=== PATIENT | female | born 1995 | race Caucasian/White ===

== ENCOUNTER 2016-11-19 17:20 | Emergency (ER) | payer SELFPAY ==
[~2016-11-19] VITALS: Ht 175.3 cm; Wt 100.0 kg
[~2016-11-19 17:20] MED LIST: IBUP800T23 PO; ROBA750T3 PO
[2016-11-19 17:21] VITALS: BP 135/86; PULSE 116; RESP 20; TEMP 98.6; O2SAT 98
== END 2016-11-19 18:36 | disposition left against medical advice (07) ==
LOC: NED 17:20
DX: R10.9 Unspecified abdominal pain (principal); Z53.21 Procedure and treatment not carried out due to patient leaving prior to being seen by health care provider
CPT/HCPCS: 99281

== ENCOUNTER 2017-05-21 15:29 | Emergency (ER) | payer OTHER ==
[~2017-05-21] VITALS: Ht 175.3 cm; Wt 105.0 kg
[~2017-05-21 15:29] MED LIST changes: -IBUP800T23 PO; +METR1TAB76 PO; +ONDA4TAB7 SL; -ROBA750T3 PO
[2017-05-21 16:41] VITALS: BP 116/78; PULSE 128; RESP 20; TEMP 98.3; O2SAT 97
[2017-05-21] MEDS ORDERED: SODIUM CHLOR 0.9% 1000 ML INJ 1,000 ML IV ONE ×2 (18:00→19:45)
[2017-05-21] MEDS ORDERED: METOCLOPRAMIDE HCL 10 MG/2 ML VIAL IV PUSH ONE (18:00)
[2017-05-21 18:07] LABS: AUTOMATED NEUTROPHIL # 14.3 TH/MM3 (1.8-7.7); BASOPHIL % 0.3 % (0.0-2.0); HEMATOCRIT 49.3 % (35.0-46.0); HEMOGLOBIN 17.5 GM/DL (11.6-15.3); LYMPH % 15.2 % (9.0-44.0); LYMPHOCYTE # 2.8 TH/MM3 (1.0-4.8); MEAN CELL VOLUME 78.5 FL (80.0-100.0); MEAN CORPUSCULAR HEMOGLOBIN 27.9 PG (27.0-34.0); MEAN CORPUSCULAR HGB CONC 35.5 % (32.0-36.0); MEAN PLATELET VOLUME 7.2 FL (7.0-11.0); MONO % 7.2 % (0.0-8.0); MONOCYTE # 1.3 TH/MM3 (0-0.9); NEUT % 77.3 % (16.0-70.0); PLATELET COUNT 429 TH/MM3 (150-450); RED BLOOD COUNT 6.29 MIL/MM3 (4.00-5.30); RED CELL DISTRIBUTION WIDTH 16.1 % (11.6-17.2); WHITE BLOOD COUNT 18.5 TH/MM3 (4.0-11.0)
[2017-05-21 18:29] LABS: ALBUMIN 3.7 GM/DL (3.4-5.0); ALKALINE PHOSPHATASE 147 U/L (45-117); ALT (GPT) 51 U/L (10-53); AST (GOT) 53 U/L (15-37); BLOOD UREA NITROGEN 17 MG/DL (7-18); CALCIUM 10.5 MG/DL (8.5-10.1); CHLORIDE 87 MEQ/L (98-107); CREATININE 1.51 MG/DL (0.50-1.00); GLOMERULAR FILTRATION RATE 42 ML/MIN (>89); GLUCOSE,RANDOM 115 MG/DL (74-106); SODIUM (NA) 131 MEQ/L (136-145); TOTAL PROTEIN 9.4 GM/DL (6.4-8.2)
--- NOTE | 2017-05-21 18:59 | PD ---
HPI Chief Complaint: Cold / Flu Symptoms Time Seen by Provider: 17:43 Travel History International Travel<30 days: No Contact w/Intl Traveler<30days: No Traveled to known affect area: No History of Present Illness HPI 22y female 16 weeks presents to the ED complaining of nausea, vomiting for approximately 3 days. States that she has a history of hyperemesis gravidarum with her previous pregnacy and has had to be followed by OB closely. States that she has tried the Diclegis and Zofran without relief of her nausea. States the last administration of Zofran she developed a rash and this was 3 days ago. She has not taken any medication since then. Patient denies chest pain, shortness of breath. Denies vaginal discharge. She was advised to come to the ED to r/u influenza prior to going to OB here for monitoring. PFSH Past Medical History Medical History: Denies Significant Hx Diminished Hearing: No Immunizations Current: Yes Tetanus Vaccination: Unknown Influenza Vaccination: No ?: LMP: 16 weeks : 2 Para: 1 Miscarriage: 0 : 0 Past Surgical History Surgical History: No Previous Surgery Social History Alcohol Use: No Tobacco Use: No Substance Use: No Allergies-Medications (Allergen,Severity, Reaction): Coded Allergies: ondansetron (Verified Allergy, Mild, rash, 05/21/17) No Known Allergies (Unverified Allergy, Unknown, 05/21/17) Reported Meds & Prescriptions Reported Meds & Active Scripts Active Promethazine Supp (Promethazine HCl) 25 Mg Supp 25 Mg RECTAL Q6H PRN 5 Days Ondansetron Odt 4 Mg Tab 4 Mg SL Q12HR PRN Review of Systems Except as stated in HPI: all other systems reviewed are Neg Physical Exam Narrative GENERAL: Well-developed well-nourished in mild distress, in right decubitus position SKIN: Focused skin assessment warm/dry. Left anterior upper chest wall with small 3 mm papules (family says this is the reaction of zofran) HEAD: Atraumatic. Normocephalic. EYES: Pupils equal and round. No scleral icterus. No injection or drainage. ENT: No nasal bleeding or discharge. Mucous membranes pink and moist. No pharyngeal injection, no tonsillary hypertrophy NECK: Trachea midline. No JVD. CARDIOVASCULAR: Regular rate and rhythm. No murmur appreciated. RESPIRATORY: No accessory muscle use. Clear to auscultation. Breath sounds equal bilaterally. GASTROINTESTINAL: Abdomen soft, mildly tender MUSCULOSKELETAL: No obvious deformities. No clubbing. No cyanosis. No edema. No CVA tenderness NEUROLOGICAL: Awake and alert. No obvious cranial nerve deficits. Motor grossly within normal limits. Normal speech. PSYCHIATRIC: Appropriate mood and affect; insight and judgment normal. Data Data Last Documented VS Vital Signs Date Time Temp Pulse Resp B/P (MAP) Pulse Ox O2 Delivery O2 Flow Rate FiO2 05/21/17 20:32 05/21/17 17:23 Room Air 05/21/17 16:41 98.3 128 20 97 Orders Orders Complete Blood Count With Diff (05/21/17 17:03) Comprehensive Metabolic Panel (05/21/17 17:03) Influenzae A/B Antigen (05/21/17 17:03) Metoclopramide Inj (Reglan Inj) (05/21/17 18:00) Sodium Chlor 0.9% 1000 Ml Inj (Ns 1000 M (05/21/17 18:00) Potassium Chloride (Kcl) (05/21/17 19:00) Sodium Chlor 0.9% 1000 Ml Inj (Ns 1000 M (05/21/17 19:45) Promethazine Inj (Phenergan Inj) (05/21/17 19:45) Ed Discharge Order (05/21/17 19:50) Labs Laboratory Tests Test 05/21/17 17:25 White Blood Count 18.5 TH/MM3 Red Blood Count 6.29 MIL/MM3 Hemoglobin 17.5 GM/DL Hematocrit 49.3 % Mean Corpuscular Volume 78.5 FL Mean Corpuscular Hemoglobin 27.9 PG Mean Corpuscular Hemoglobin Concent 35.5 % Red Cell Distribution Width 16.1 % Platelet Count 429 TH/MM3 Mean Platelet Volume 7.2 FL Neutrophils (%) (Auto) 77.3 % Lymphocytes (%) (Auto) 15.2 % Monocytes (%) (Auto) 7.2 % Eosinophils (%) (Auto) 0.0 % Basophils (%) (Auto) 0.3 % Neutrophils # (Auto) 14.3 TH/MM3 Lymphocytes # (Auto) 2.8 TH/MM3 Monocytes # (Auto) 1.3 TH/MM3 Eosinophils # (Auto) 0.0 TH/MM3 Basophils # (Auto) 0.0 TH/MM3 CBC Comment AUTO DIFF Differential Comment AUTO DIFF CONFIRMED Blood Urea Nitrogen 17 MG/DL Creatinine 1.51 MG/DL Random Glucose 115 MG/DL Total Protein 9.4 GM/DL Albumin 3.7 GM/DL Calcium Level 10.5 MG/DL Alkaline Phosphatase 147 U/L Aspartate Amino Transf (AST/SGOT) 53 U/L Alanine Aminotransferase (ALT/SGPT) 51 U/L Total Bilirubin 1.0 MG/DL Sodium Level 131 MEQ/L Potassium Level 2.8 MEQ/L Chloride Level 87 MEQ/L Carbon Dioxide Level 32.0 MEQ/L Anion Gap 12 MEQ/L Estimat Glomerular Filtration Rate 42 ML/MIN MDM Medical Decision Making Medical Screen Exam Complete: Yes Emergency Medical Condition: Yes Differential Diagnosis Influenza, viral syndrome, hyperemesis gravidarum Narrative Course 22y female presents to the ED complaining of nausea, vomiting for approximately 16 weeks. States that she has a history of hyperemesis gravidarum and has had to be followed by OB closely. States that she has tried the Diclegis and Zofran without relief of her nausea. States the last administration of Zofran she developed a rash and this was 3 days ago. She has not taken any medication since then. Patient denies chest pain, shortness of breath. Denies vaginal discharge. She was advised to come to the ED to r/u influenza prior to going to OB here for monitoring. Vital signs stable. Influenza negative. Labs appear stable. Patient received 2 L IV fluid in the emergency department today. Reglan administered however, unable to control her nausea. Promethazine 25 mg administered IM. This did help her nausea. She will be discharged with [place] Phenergan. Advised to stay ahead of the nausea symptoms and encourage hydration. Continue zofran. 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 She is instructed to follow-up in the OB, L&D area. Diagnosis Primary Impression: Hyperemesis Referrals: Manager Communication Primary Care Physician Additional Instructions: Take small sips of water to encourage adequate fluid intake. Use the promethazine suppositories as prescribed to prevent nausea. Follow-up with your motor vehicle operator road supervisor as soon as possible. Go to the L&D, OB department for observation Scripts Promethazine Supp (Promethazine Supp) 25 Mg Supp 25 MG RECTAL Q6H Y for NAUSEA OR VOMITING for 5 Days, #20 SUPP 0 Refills Prov: Sandra Pimentel 05/21/17 Disposition: 01 DISCHARGE HOME Condition: Stable Sandra Pimentel May 21, 2017 18:59
[2017-05-21] MEDS ORDERED: POTASSIUM CHLORIDE 10 MEQ CONTROLLED RELEASE TAB PO ONE (19:00)
[2017-05-21] MEDS ORDERED: PROM1SUP9 RECTAL (19:36)
[2017-05-21] MEDS ORDERED: PROMETHAZINE INJ 25 MG/ML VIAL IM ONE (19:45)
== END 2017-05-21 20:34 | disposition home or self-care (01) ==
LOC: HOBED 15:29 → NEPC 20:34
DX: O21.0 Mild hyperemesis gravidarum (principal); Z3A.16 16 weeks gestation of pregnancy; Z88.8 Allergy status to other drugs, medicaments and biological substances; Z79.899 Other long term (current) drug therapy
CPT/HCPCS: 80053; 85025; 87804; 96372; 96374; 99283; J2550; J2765; J7030

== ENCOUNTER 2017-10-12 22:41 | Emergency (ER) | payer OTHER ==
[~2017-10-12 22:41] MED LIST changes: -METR1TAB76 PO; +PROM1SUP9 RECTAL
[2017-10-12 23:03] VITALS: BP 137/83; PULSE 97
[2017-10-12 23:21] VITALS: BP 140/77; PULSE 99
[2017-10-12 23:30] VITALS: BP 137/81; PULSE 96
--- NOTE | 2017-10-12 23:30 | PD ---
HPI Chief Complaint my blood pressure is high Date Seen: Oct 12, 2017 Time Seen: 23:10 Travel History International Travel<30 Days: No Contact w/Intl Traveler<30Days: No Known Affected Area: No History of Present Illness HPI 22 yo presents at 36 wks c/o high BP at home. pt noticed lower leg swelling today. she checked her BP as her sister and mother both had preeclampsia. her bp was 167/97 at home. she denies SO/RUQ pain or visual changes. +FM, no LOF, VB or contractions. pt didn't preeclampsia with last . [facility]. History Past Medical History Medical History: Denies Significant Hx Obstetric History Obstetric History X 1 Past Surgical History Surgical History: No Previous Surgery Family History Family History: Negative Social History Alcohol Use: No Tobacco Use: No Substance Abuse: No Allergies-Medications (Allergen,Severity, Reaction): Coded Allergies: ondansetron (Verified Allergy, Mild, rash, 05/21/17) No Known Allergies (Unverified Allergy, Unknown, 05/21/17) Home Meds Active Scripts Promethazine Supp (Promethazine Supp) 25 Mg Supp, 25 MG RECTAL Q6H Y for NAUSEA OR VOMITING for 5 Days, #20 SUPP 0 Refills Prov:Sandra Pimentel 05/21/17 Ondansetron Odt (Ondansetron Odt) 4 Mg Tab, 4 MG SL Q12HR Y for Nausea/Vomiting , #30 TAB 0 Refills Prov:Masoud Duenas MD 05/06/17 Review of Systems Except as stated in HPI: all other systems reviewed are Neg Physical Exam BP 145/85, 137/83 Narrative GENERAL: Well-nourished, well-developed patient. SKIN: Warm and dry. HEAD: Normocephalic and atraumatic. EYES: No scleral icterus. No injection or drainage. ENT: No nasal drainage noted. Mucous membranes pink. Airway patent. NECK: Supple, trachea midline. No JVD. CARDIOVASCULAR: Regular rate and rhythm without murmurs, gallops, or rubs. RESPIRATORY: Breath sounds equal bilaterally. No accessory muscle use. BREASTS: Bilateral exam showed no masses , no retractions, no nipple discharge. ABDOMEN/GI: Abdomen soft, non-tender, bowel sounds present, no rebound, no guarding Gravid GENITOURINARY: External Genitalia: intact and normal in appearance Membranes: [intact ] Uterine Contractions: [-] quiet FHT's: Category: [-] 1 Baseline: [-] 130s Reactive: [-] yes Variability: [-] mod Decels: [-] none EXTREMITIES: No cyanosis or edema. BACK: Nontender without obvious deformity. No CVA tenderness. NEUROLOGICAL: Awake and alert. Motor and sensory grossly within normal limits. Five out of 5 muscle strength in all muscle groups. Normal speech. Data Data Vital Signs Reviewed: Yes Orders Orders Vital Signs (Adult) .ON ADMISSION (10/12/17 23:08) ^ Labor Status (10/12/17 23:08) Urinalysis - C+S If Indicated (10/12/17 23:08) ^ Non Stress Test (10/12/17 23:08) ^ Hydration (10/12/17 23:08) Cbc No Diff, Includes Plts (10/12/17 23:08) Comprehensive Metabolic Panel (10/12/17 23:08) Uric Acid (10/12/17 23:08) Type And Screen (10/12/17 23:08) MDM Medical Record Reviewed: Yes Interpretation(s) IUP@ 36 wks elevated BP Plan d/c home on low sodium diet and modified bedrest f/u with drs office in am replete potassium Diagnosis Diagnosis: Primary Impression: Elevated blood pressure affecting in third trimester, antepartum Additional Impression: Hypokalemia Disposition: 01 DISCHARGE HOME Condition: Stable Norma Moe MD Oct 12, 2017 23:30
[2017-10-12 23:31] LABS: HEMATOCRIT 27.5 % (35.0-46.0); HEMOGLOBIN 9.3 GM/DL (11.6-15.3); MEAN CELL VOLUME 76.5 FL (80.0-100.0); MEAN CORPUSCULAR HEMOGLOBIN 25.7 PG (27.0-34.0); MEAN CORPUSCULAR HGB CONC 33.7 % (32.0-36.0); MEAN PLATELET VOLUME 6.2 FL (7.0-11.0); PLATELET COUNT 285 TH/MM3 (150-450); RED CELL DISTRIBUTION WIDTH 16.9 % (11.6-17.2)
[2017-10-12 23:38] LABS: BACTERIA, URINE RARE /hpf; BILIRUBIN, URINE NEG (NEG); BLOOD, URINE NEG (NEG); GLUCOSE,URINE NEG (NEG); KETONE, URINE NEG (NEG); MUCUS URINE FEW /lpf (OCC); NITRITE,URINE NEG (NEG); SQUAMOUS EPITHELIAL CELL URINE 3 /hpf (0-5); URINE COLOR YELLOW (YELLW/STRAW); URINE LEUKOCYTE ESTERASE TRACE (NEG)
[2017-10-12 23:45] VITALS: BP 140/86; PULSE 97
[2017-10-12 23:50] LABS: ALBUMIN 2.2 GM/DL (3.4-5.0); ALKALINE PHOSPHATASE 145 U/L (45-117); ALT (GPT) 12 U/L (10-53); AST (GOT) 10 U/L (15-37); BICARBONATE 27.8 MEQ/L (21.0-32.0); BLOOD UREA NITROGEN 4 MG/DL (7-18); CALCIUM 8.8 MG/DL (8.5-10.1); CHLORIDE 103 MEQ/L (98-107); CREATININE 0.61 MG/DL (0.50-1.00); GLOMERULAR FILTRATION RATE 121 ML/MIN (>89); GLUCOSE,RANDOM 94 MG/DL (74-106); SODIUM (NA) 141 MEQ/L (136-145); TOTAL BILIRUBIN ADULT 0.3 MG/DL (0.2-1.0); TOTAL PROTEIN 6.2 GM/DL (6.4-8.2)
[2017-10-13] VITALS: RESP 16
[2017-10-13] MEDS ORDERED: POTASSIUM CHLORIDE 10 MEQ CONTROLLED RELEASE TAB PO ONE
[2017-10-15] MEDS ORDERED: FERR325T18 PO (07:48)
== END 2017-10-13 00:20 | disposition home or self-care (01) ==
LOC: HOBED 22:41
DX: O26.893 Other specified pregnancy related conditions, third trimester (principal); R03.0 Elevated blood-pressure reading, without diagnosis of hypertension; O99.283 Endocrine, nutritional and metabolic diseases complicating pregnancy, third trimester; E87.6 Hypokalemia; M79.89 Other specified soft tissue disorders; Z3A.36 36 weeks gestation of pregnancy; Z79.899 Other long term (current) drug therapy
CPT/HCPCS: 36415; 80053; 81001; 84550; 85027; 86850; 86900; 86901; 99283

== ENCOUNTER 2017-10-13 19:58 | Inpatient (IN) ==
[2017-10-17] MEDS ORDERED: Citric Acid/Sodium Citrate Liq 30 ML UDC PO SCH (00:01)
[2017-10-17] MEDS ORDERED: Zolpidem Tartrate 5 MG Tablet PO PRN (00:01)
[2017-10-17] MEDS ORDERED: Aluminum/Magnesium/Simethacone Susp 30 ML UDC PO PRN (00:01)
[2017-10-17] MEDS ORDERED: Witch Hazel 50%/Glyderin 12.5% 40 Pad Jar TOPICAL PRN (00:01)
[2017-10-17] MEDS ORDERED: Sod Chloride 0.9% Inj 1,000 ML IV.SIG PRN (00:01)
[2017-10-17] MEDS ORDERED: Senna/Docusate Sodium 8.6/50 MG Tablet PO PRN (00:01)
[2017-10-17] MEDS ORDERED: fentaNYL 2MCG-Bupiv 0.125% Epi 150 ML EPIDURAL PRN (00:01)
[2017-10-17] MEDS ORDERED: Benzocaine 20% Top Spray 60 ML Can TOPICAL PRN (00:01)
[2017-10-17] MEDS ORDERED: Acetaminophen 325 MG Tablet PO PRN (00:01)
--- NOTE | 2017-10-17 10:06 | P.PNOB ---
Subjective Interval history: OB note: Patient is a 22-year-old delivered at 37 weeks and 1 days. Patient is day 2 after . Patient's pain is well-controlled. Patient reports eating and drinking without any nausea or vomiting. Patient reports minimal bleeding. Patient has has a bowel movement. Patient is walking without lower extremity pain or shortness of breath. Objective Vital Signs/I&O: Intake & Output 10/16/17 10/17/17 10/17/17 18:59 06:59 18:59 Weight 109 kg Vital Signs Temp Pulse Resp BP 10/17/17 10:46 98.1 F 72 16 141/99 H Result Diagrams: 10/14/17 05:50 10/15/17 08:39 Objective Remarks: GENERAL: Well-nourished, well-developed patient. CARDIOVASCULAR: Regular rate and rhythm +1/6 systolic murmur (likely flow murmur ), no gallops or rubs. RESPIRATORY: Breath sounds equal bilaterally. No accessory muscle use. ABDOMEN/GI: Abdomen soft, non-tender. Fundus: Firm, non-tender at umbilicus. GENITOURINARY: Light to moderate bleeding. EXTREMITIES: No cyanosis or edema, non-tender, without signs of DVT. Medications and IVs: Active Medications Acetaminophen (Tylenol) 650 mg PO Q4H PRN PRN Reason: PAIN 1-2 Al Hydrox/Mg Hydrox/Simethicone (Mag-Al Plus Susp Liq) 15 ml PO Q8H PRN PRN Reason: DYSPEPSIA Benzocaine (Americaine 20% Top Ellerbe) 1 spray TOPICAL Q4H PRN PRN Reason: PERINEUM DISCOMFORT Citric Acid/Sodium Citrate (Sodium Citrate/Citric Acid Liq) 30 ml PO [employer] AMAURY Stop: 10/19/17 00:00 Hydroxyzine Pamoate (Vistaril) 75 mg PO Q8H PRN PRN Reason: anxiety, rest Sodium Chloride (Ns Inj) 1,000 mls @ 100 mls/hr IV.SIG .Q10H PRN PRN Reason: SEE LABEL COMMENTS Fentanyl/Bupivacaine/Sodium Chlor (Fentanyl 2 Mcg-Bupiv 0.125% Epi) 150 mls @ 0 mls/hr EPIDURAL TITRATE PRN; Protocol PRN Reason: Labor pain Promethazine HCl (Phenergan Inj) 25 mg IM Q6H PRN PRN Reason: NAUSEA OR VOMITING Senna/Docusate Sodium (Karen-Colace) 2 tab PO Q12H PRN PRN Reason: CONSTIPATION Sodium Chloride (Ns Flush) 2 ml IV.FLUSH BID AMAURY Sodium Chloride (Ns Flush) 2 ml IV.FLUSH UNSCH PRN PRN Reason: FLUSH AFTER USING IV ACCESS Witch Lucretia/Glycerin (Tucks Pads) 1 applicatio TOPICAL QID PRN PRN Reason: HEMORRHOIDS Zolpidem Tartrate (Ambien) 5 mg PO HS PRN PRN Reason: INSOMNIA Assessment and Plan - Plan OB plan: Patient is a 22-year-old G delivered at 37 weeks and 1 days. Patient is day 2 after . Patient was counseled to do 6 weeks of pelvic rest. Patient was counseled to follow up in 1 week. Patient is undecided about contraception. --AF VSS --Continue routine care --Motrin and Percocet when necessary for pain --Encourage OOB --Pelvic rest for 6 weeks will need follow-up appointment at that time. --Contraception: undecided --Anticipate discharge today --Follow up in one week for blood pressure check - Attending Attestation The patient was seen and evaluated with the resident and I was involved in all coe decision making. Continue routine care. SMS
== END 2017-10-17 16:00 | disposition home or self-care (01) ==
LOC: UNDODISIN → H1EA 19:59
PROVIDERS: ADMIT Obstetrics & Gynecology Maternal & Fetal Medicine; ATTEND Obstetrics & Gynecology Maternal & Fetal Medicine